=== PATIENT | male | born 2000 | race Caucasian/White ===

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

== ENCOUNTER 2020-02-16 17:49 | Outpatient (CLI) | payer MEDICAID | END 2020-02-16 17:50 | disposition home or self-care (01) | LOC: COV 17:49 | PROVIDERS: ATTEND Family Medicine | DX: R05 Cough (principal) ==

== ENCOUNTER 2021-01-02 07:00 | Outpatient (CLI) | payer MEDICAID | END 2021-01-02 23:59 | disposition home or self-care (01) | LOC: LAB.N 07:00 | PROVIDERS: ATTEND Family Medicine | DX: J02.9 Acute pharyngitis, unspecified (principal) | CPT/HCPCS: 36415; 86308; 87070 ==

== ENCOUNTER 2021-08-20 13:55 | Outpatient (CLI) | payer OTHER, MEDICAID | END 2021-08-20 13:56 | disposition home or self-care (01) | LOC: COV 13:55 | PROVIDERS: ATTEND Family Medicine | DX: Z20.822 Contact with and (suspected) exposure to COVID-19 (principal) ==

== ENCOUNTER 2022-11-10 15:25 | Outpatient (CLI) | payer MEDICAID | END 2022-11-10 15:26 | disposition EMS.NT | LOC: EMS 15:25 | DX: R11.0 Nausea (principal) ==